=== PATIENT | female | born 1965 | race Caucasian/White ===

== ENCOUNTER 2021-01-23 09:35 | Observation (INO) ==
[2021-01-23] MEDS ORDERED: Ondansetron 4 MG/2 ML VIAL IVP ONE (09:47)
[2021-01-23] MEDS ORDERED: Pantoprazole 40 MG VIAL IVP ONE (09:47)
[2021-01-23] MEDS ORDERED: 0.9 % Sodium Chloride 1,000 ML IVC ONE (09:47)
[2021-01-23] MEDS ORDERED: *HR* HYDROmorphone (PF) 1 MG/ML SYRINGE IVP ONE (09:47)
[2021-01-23 09:48] LABS: Bilirubin,Urine Negative (Negative); Blood,Urine Small (Negative); Clarity,Urine Clear (Clear); Color,Urine Yellow (Yellow); Glucose,Urine (UA) Normal (Normal); Ketones,Urine Negative (Negative); Leukocyte Esterase,Urine Negative (Negative); Nitrite,Urine Negative (Negative); PH,Urine 5.5 pH Units (5.0-8.0); Protein,Urine Negative (Neg-Trace); Specific Gravity,Urine 1.025 (1.010-1.025); Urobilinogen,Urine Normal (Normal)
[2021-01-23 09:54] LABS: Squamous Epithelial Cell,Urine Few per hpf (None-Few)
[2021-01-23 09:55] LABS: Mucus,Urine Moderate per lpf (None-Few)
[2021-01-23 09:59] LABS: Basophils # 0.1 K/mcL (0.0-0.2); Basophils % 0.5 %; Eosinophils # 0.2 K/mcL (0.0-0.6); Hematocrit 43.8 % (35.3-44.9); Hemoglobin 14.2 g/dL (11.5-15.4); Immature Granulocytes % 0.6 % (0-4); Lymphocytes # 2.6 K/mcL (0.6-4.6); Lymphocytes % 13.1 %; Mean Corpuscular HGB Conc 32.4 g/dL (31.6-35.5); Mean Corpuscular Hemoglobin 30.4 pg (28.0-33.3); Mean Corpuscular Volume 93.8 fL (83.0-100.0); Mean Platelet Volume 9.4 fL (9.4-12.4); Monocytes # 2.2 K/mcL (0.0-1.3); Monocytes % 10.9 %; Neutrophils # 14.6 K/mcL (1.6-8.9); Platelet Count 251 K/mcL (140-400); Red Blood Count 4.67 M/mcL (3.82-4.97); Red Cell Distribution Width 13.7 % (11.5-14.5); Segmented Neutrophils % 73.9 %; White Blood Count 19.8 K/mcL (4.3-11.1)
[2021-01-23 10:18] LABS: Alanine Aminotransferase 9 Units/L (7-52); Albumin 3.5 g/dL (3.5-5.7); Albumin/Globulin Ratio 1.3 (1.1-2.2); Alkaline Phosphatase 63 Units/L (34-104); Amylase 28 Units/L (29-103); Aspartate Amino Transferase 11 Units/L (13-39); BUN/Creatinine Ratio 9 (6-26); Bilirubin,Direct 0.1 mg/dL (0.0-0.2); Bilirubin,Indirect 0.4 mg/dL (0.0-1.0); Bilirubin,Total 0.5 mg/dL (0.3-1.0); Blood Urea Nitrogen 7 mg/dL (6-20); Calcium 8.8 mg/dL (8.6-10.3); Carbon Dioxide 22 mEq/L (23-29); Chloride 104 mEq/L (98-107); Globulin 2.8 g/dL (2.4-3.5); Glucose 135 mg/dL (70-105); Lipase 18 Units/L (11-82); Osmolality,Calculated 282 (280-300); Potassium 3.5 mEq/L (3.5-5.1); Sodium 136 mEq/L (136-145); Total Protein 6.3 g/dL (6.4-8.9); eGFR For African Americans > 60 (> 60); eGFR For Non-African Americans > 60 (> 60)
[2021-01-23] MEDS ORDERED: Naloxone 0.4 MG/ML INJ IVP PRN (10:38)
[2021-01-23] MEDS ORDERED: Ondansetron 4 MG/2 ML VIAL IVP PRN (10:38)
[2021-01-23] MEDS: *HR* HYDROmorphone 2 MG/ML SYRINGE IVP PRN ×3 (11:35→21:20)
[2021-01-23] MEDS: 0.9 % Sodium Chloride 1,000 ML IVC SCH ×2 (11:36→18:09)
[2021-01-23] MEDS: *HR* HYDROcodone/Acet 7.5/325 mg TABLET PO PRN (19:34)
[2021-01-23] MEDS ORDERED: Gabapentin 300 MG CAPSULE PO SCH (21:00)
[2021-01-23] MEDS: Amoxicillin 500 MG CAPSULE PO SCH (21:20)
[2021-01-24] MEDS: *HR* HYDROmorphone 2 MG/ML SYRINGE IVP PRN (01:22)
[2021-01-24] MEDS: *HR* HYDROcodone/Acet 7.5/325 mg TABLET PO PRN (03:42)
[2021-01-24 04:16] VITALS: RESP 18
[2021-01-24 07:24] VITALS: BP 109/65; PULSE 94; TEMP 98.8; O2SAT 92
[2021-01-24 07:48] LABS: Hematocrit 36.7 % (35.3-44.9); Hemoglobin 11.9 g/dL (11.5-15.4); Mean Corpuscular HGB Conc 32.4 g/dL (31.6-35.5); Mean Corpuscular Hemoglobin 30.7 pg (28.0-33.3); Mean Corpuscular Volume 94.6 fL (83.0-100.0); Mean Platelet Volume 9.9 fL (9.4-12.4); Platelet Count 214 K/mcL (140-400); Red Blood Count 3.88 M/mcL (3.82-4.97); Red Cell Distribution Width 13.3 % (11.5-14.5); White Blood Count 14.2 K/mcL (4.3-11.1)
[2021-01-24 08:33] LABS: BUN/Creatinine Ratio 13 (6-26); Blood Urea Nitrogen 8 mg/dL (6-20); Calcium 8.2 mg/dL (8.6-10.3); Carbon Dioxide 26 mEq/L (23-29); Chloride 106 mEq/L (98-107); Glucose 70 mg/dL (70-105); Lipase 9 Units/L (11-82); Osmolality,Calculated 285 (280-300); Potassium 3.9 mEq/L (3.5-5.1); Sodium 139 mEq/L (136-145); eGFR For African Americans > 60 (> 60); eGFR For Non-African Americans > 60 (> 60)
[2021-01-24] MEDS ORDERED: predniSONE 1 MG TABLET PO SCH ×2 (09:00→09:30)
[2021-01-24] MEDS ORDERED: Pantoprazole 40 MG VIAL IVP SCH (09:00)
[2021-01-24] MEDS: Amoxicillin 500 MG CAPSULE PO SCH (09:05)
[2021-01-24] MEDS ORDERED: *HR* HYDROcodone/Acet 7.5/325 mg TABLET PO ONE (09:14)
== END 2021-01-24 11:06 | disposition home or self-care (01) ==
LOC: EMEROOPIK 09:35 → INPPIK 09:35
PROVIDERS: ADMIT Family Medicine; ATTEND Family Medicine